=== PATIENT | female | born 1990 | race Hispanic/Latino ===

== ENCOUNTER 2019-06-07 23:59 | Observation (INO) | payer BC, MEDICAID ==
[~2019-06-07] VITALS: Ht 157.5 cm; Wt 74.4 kg
[2019-06-08 01:09] LABS: BASOPHILS % (AUTO) 0.6 % (0.0-5.0); EOSINOPHILS % (AUTO) 2.9 % (0.0-8.0); HEMATOCRIT 40.2 % (36-48); LYMPHOCYTES % (AUTO) 26.6 % (21.0-51.0); MEAN CORPUSCULAR HEMOGLOBIN 29.8 pg (27.0-33.0); MEAN CORPUSCULAR HGB CONC 33.1 g/dL (32.0-36.0); MEAN CORPUSCULAR VOLUME 89.9 fL (79-99); MONOCYTES % (AUTO) 4.8 % (3.0-13.0); NEUTROPHILS % (AUTO) 64.8 % (40.0-77.0); PLATELET COUNT (AUTO) 264 K/uL (130-400); RED BLOOD CELL COUNT(AUTO) 4.47 MIL/uL (4.00-5.50); RED CELL DISTRIBUTION WIDTH 12.1 % (11.0-15.5)
[2019-06-08 01:13] LABS: CREATININE 0.6 mg/dL (0.5-1.5); POTASSIUM 3.6 mmol/L (3.5-5.1)
[2019-06-08 01:16] LABS: INR 0.95 (0.85-1.15)
[2019-06-08] MEDS ORDERED: ONDANSETRON HCL 4 MG/2 ML VIAL ONE ×2 (01:19→14:05)
[2019-06-08] MEDS ORDERED: DiphenhydrAMINE HCL 50 MG/ML VIAL ONE (01:19)
[2019-06-08] MEDS ORDERED: SODIUM CHLORIDE 0.9% 1000ML 1,000 ML IV ONE ×2 (01:20→04:15)
[2019-06-08 01:24] LABS: APPEARANCE,URINE Cloudy (CLEAR); BILIRUBIN,URINE Negative (NEGATIVE); GLUCOSE, URINE (UA) Negative (NEGATIVE); KETONES,URINE Negative (NEGATIVE); LEUKOCYTE ESTERASE ,URINE Trace (NEGATIVE); NITRATE,URINE Negative (NEGATIVE); OCCULT BLOOD,URINE Large (NEGATIVE); PROTEIN,URINE POS 2+ mg/dL (NEGATIVE)
[2019-06-08 01:25] LABS: COLOR,URINE Orange (YELLOW)
[2019-06-08 01:32] LABS: BACTERIA,URINE None Seen /HPF (None Seen); RBC,URINE 51-100 /HPF (0-1); SQUAMOUS EPITHELIAL CELL,UR Rare /HPF (0-2); WBC,URINE 0-1 /HPF (0-1)
[2019-06-08 01:38] LABS: ALBUMIN 3.9 g/dL (3.5-5.0); BILIRUBIN,TOTAL 0.3 mg/dL (0.2-1.0); TOTAL PROTEIN, SERUM 7.8 g/dL (6.0-8.3)
[2019-06-08] MEDS ORDERED: METOCLOPRAMIDE 10 MG/2 ML VIAL ONE (04:15)
[2019-06-08] MEDS ORDERED: KETOROLAC TROMETHAMINE 30MG/ML ONE (04:15)
[2019-06-08] MEDS ORDERED: MORPHINE SULFATE 2 MG/ML 1ML SYG ONE (05:33)
[2019-06-08 06:27] VITALS: BP 153/99
[2019-06-08 07:08] VITALS: BP 142/78
[2019-06-08] MEDS ORDERED: LABE200T5 PO (07:45)
[2019-06-08] MEDS ORDERED: LACTATED RINGERS 1000ML 1,000 ML IV SCH (11:00)
[2019-06-08 11:30] VITALS: BP 127/82
[2019-06-08] MEDS ORDERED: PROPOFOL 10 MG/ML 20ML VIAL IV ONE (13:53)
[2019-06-08] MEDS ORDERED: MIDAZOLAM HCL 1 MG/ML 2ML VIAL ONE (13:53)
[2019-06-08] MEDS ORDERED: FENTANYL CITRATE PF 50 MCG/1 ML 2ML VIAL ONE (13:53)
[2019-06-08] MEDS ORDERED: LIDOCAINE PF 2% 5ML ABBOJECT ONE (13:58)
[2019-06-08] MEDS ORDERED: DEXAMETHASONE SOD PHOSPHATE 10MG/ML 1ML VIAL ONE (14:05)
[2019-06-08] MEDS ORDERED: OXYTOCIN-LR 20 UNITS/1000 ML 1,000 ML IV ONE (14:10)
[2019-06-08 15:50] VITALS: BP 145/92
--- NOTE | 2019-06-08 15:50 | NUR ---
pt is back to room via her bed from L[facility]D Addendum: 06/08/19 at 1612 by CHUY GARCIA RN Amended: Links added.
--- NOTE | 2019-06-08 16:10 | NUR ---
Assisted to the bathroom, voided 700ml, scant bleeding noted, pericare done. Addendum: 06/08/19 at 1745 by CHUY GARCIA RN Amended: Links added.
--- NOTE | 2019-06-08 16:40 | NUR ---
pt tolerated juice and zay govea nausea,vomiting Addendum: 06/08/19 at 1746 by CHUY GARCIA RN Amended: Links added.
--- NOTE | 2019-06-08 18:00 | NUR ---
Verbal and written discharge instructions given, informed to call the doctors office on monday for follow up appointment.informed to call the doctor for any concerns, pt voiced understanding to all things discussed. Addendum: 06/08/19 at 1816 by CHUY GARCIA RN Amended: Links added.
--- NOTE | 2019-06-08 18:25 | NUR ---
Pt is dismissed, brought to private car via wheelchair, pt is in stable condition. Addendum: 06/08/19 at 1829 by CHUY GARCIA RN Amended: Links added.
== END 2019-06-08 18:25 | disposition home or self-care (01) ==
LOC: EDH 23:59 → EDHIP 06-08 05:26 → WSH 06-08 06:25
PROVIDERS: ADMIT Obstetrics & Gynecology; ATTEND Obstetrics & Gynecology
DX: O02.1 Missed abortion (principal); O16.1 Unspecified maternal hypertension, first trimester; Z79.899 Other long term (current) drug therapy; Z3A.11 11 weeks gestation of pregnancy
CPT/HCPCS: 36415; 59820; 76801 ×2; 80053; 81001; 83690; 84702; 85025; 85610; 85730; 86850; 86900; 86901; 88305; 99284; A4315; G0378 ×12; J1100; J1200; J1885; J2001; J2250; J2405 ×2; J2590; J2704; J2765; J3010; J7030 ×2; J7120